=== PATIENT | male | born 1980 | race Caucasian/White ===

== ENCOUNTER 2024-05-31 10:49 | Inpatient (IN) | payer OTHER ==
[~2024-05-31] VITALS: Ht 188 cm; Wt 114.1 kg
[2024-05-31] MEDS ORDERED: HEPARIN SODIUM,PORCINE 5,000 UNITS/ML VIAL IVP PRN ×2 (13:15)
[2024-05-31] MEDS ORDERED: HEPARIN SODIUM,PORCINE 5,000 UNITS/ML VIAL IVP ONE (13:15)
[2024-05-31 13:46] LABS: BASOPHILS % (AUTO) 0.4 % (0.0-2.0); EOSINOPHILS % (AUTO) 0.9 % (1.0-6.0); HEMATOCRIT 47.3 % (41-53); HEMOGLOBIN 16.3 g/dL (13.5-17.5); LYMPHOCYTES # (AUTO) 2.7 K/uL (1.0-4.8); LYMPHOCYTES % (AUTO) 32.2 % (22.0-44.0); MEAN CORPUSCULAR HEMOGLOBIN 31.8 pg (26.0-34.0); MEAN CORPUSCULAR HGB CONC 34.5 G/dL (31.0-37.0); MEAN CORPUSCULAR VOLUME 92 fL (80-100); MONOCYTES # (AUTO) 0.7 K/uL (0.1-1.0); MONOCYTES % (AUTO) 7.9 % (2.0-9.0); NEUTROPHILS % (AUTO) 58.6 % (40.0-70.0); PLATELET COUNT (AUTO) 264 K/uL (150-450); RED BLOOD CELL COUNT(AUTO) 5.12 MIL/uL (4.50-5.90); WHITE BLOOD COUNT (AUTO) 8.5 K/uL (4.5-11.0)
[2024-05-31 13:50] LABS: RBC MORPHOLOGY COMMENT NORMAL RBC MORPH
[2024-05-31 13:51] LABS: ANION GAP 8 mmol/L (8-16); CALCIUM, TOTAL 9.4 mg/dL (8.8-10.5); CARBON DIOXIDE 31 mmol/L (22-29); CHLORIDE 98 mmol/L (98-107); CREATININE 1.26 mg/dL (0.60-1.30); GLOMERULAR FILTR. RATE CALC > 60 mL/min (>60); GLUCOSE,RANDOM 101 mg/dL (70-110); POTASSIUM 3.7 mmol/L (3.5-5.1); SODIUM SERUM 137 mmol/L (136-145); UREA NITROGEN, BLOOD 15 mg/dL (7-18)
[2024-05-31] MEDS: HEPARIN SODIUM,PORCINE 5,000 UNITS/ML VIAL IVP ONE (14:12)
[2024-05-31] MEDS: HEPARIN SODIUM 25000 UNITS/D5W 250 ML IV PRN (14:12)
[2024-05-31 18:40] VITALS: BP 139/80; PULSE 72; RESP 20; TEMP 98.3; O2SAT 95
[2024-05-31 19:43] VITALS: BP 145/82; PULSE 73; RESP 20; TEMP 98.4; O2SAT 95
[2024-05-31] MEDS ORDERED: ACETAMINOPHEN 500 MG TABLET PO PRN (20:00)
[2024-05-31] MEDS ORDERED: MORPHINE SULFATE 2 MG/ML SYRINGE IVP PRN ×2 (20:00→23:00)
[2024-05-31] MEDS ORDERED: NALOXONE HCL 1 MG/ML 2 ML SYRINGE IVP PRN (20:00)
[2024-05-31] MEDS: ALPRAZolam 0.5 MG TABLET PO PRN (20:04)
[2024-05-31] MEDS: PARoxetine HCL 10 MG TABLET PO SCH (20:46)
[2024-05-31 21:28] VITALS: BP 129/80; PULSE 75; RESP 18; TEMP 98.2; O2SAT 94
[2024-05-31] MEDS ORDERED: BISACODYL 10 MG RECTAL RECTAL SUPPOSITORY PR PRN (23:00)
[2024-05-31] MEDS ORDERED: ALBUTEROL SULFATE 2.5 MG/0.5 ML NEB SOLUTION NEB PRN (23:00)
[2024-05-31] MEDS ORDERED: ZOLPIDEM TARTRATE 5 MG TABLET PO PRN (23:00)
[2024-05-31] MEDS ORDERED: ACETAMINOPHEN 325 MG TABLET PO PRN (23:00)
[2024-05-31] MEDS ORDERED: MAGNESIUM HYDROXIDE SUSPENSION 30 ML UDCUP PO PRN (23:00)
[2024-05-31] MEDS ORDERED: IPRATROPIUM BROMIDE 0.5 MG/2.5 ML NEB SOLUTION NEB PRN (23:00)
[2024-05-31] MEDS ORDERED: ONDANSETRON HCL 4 MG/2 ML VIAL IVP PRN (23:00)
[2024-05-31] MEDS ORDERED: OxyCODONE HCL/ACETAMINOPHEN 5-325 MG TABLET PO PRN (23:00)
[2024-06-01] MEDS ORDERED: HEPARIN SODIUM,PORCINE 5,000 UNITS/ML VIAL IVP PRN ×2 (03:00)
[2024-06-01] MEDS ORDERED: HEPARIN SODIUM,PORCINE 5,000 UNITS/ML VIAL IVP ONE (03:00)
[2024-06-01] MEDS: HEPARIN SODIUM 25000 UNITS/D5W 250 ML IV PRN (03:23)
[2024-06-01 04:51] VITALS: BP 131/84; PULSE 74; RESP 18; TEMP 98.6; O2SAT 96
[2024-06-01 07:25] LABS: BASOPHILS % (AUTO) 0.2 % (0.0-2.0); EOSINOPHILS % (AUTO) 0.4 % (1.0-6.0); HEMATOCRIT 41.8 % (41-53); HEMOGLOBIN 14.4 g/dL (13.5-17.5); LYMPHOCYTES # (AUTO) 2.8 K/uL (1.0-4.8); LYMPHOCYTES % (AUTO) 32.5 % (22.0-44.0); MEAN CORPUSCULAR HEMOGLOBIN 31.9 pg (26.0-34.0); MEAN CORPUSCULAR HGB CONC 34.5 G/dL (31.0-37.0); MEAN CORPUSCULAR VOLUME 92 fL (80-100); MONOCYTES # (AUTO) 0.5 K/uL (0.1-1.0); MONOCYTES % (AUTO) 6.2 % (2.0-9.0); NEUTROPHILS # (AUTO) 5.3 K/uL (1.8-7.7); NEUTROPHILS % (AUTO) 60.7 % (40.0-70.0); PLATELET COUNT (AUTO) 244 K/uL (150-450); RED BLOOD CELL COUNT(AUTO) 4.53 MIL/uL (4.50-5.90); WHITE BLOOD COUNT (AUTO) 8.7 K/uL (4.5-11.0)
[2024-06-01 07:35] LABS: PROTHROMBIN TIME 11.7 SEC (9.4-11.6)
[2024-06-01 08:12] VITALS: BP 132/86; PULSE 70; RESP 18; TEMP 98.9; O2SAT 98
[2024-06-01] MEDS: PANTOPRAZOLE SODIUM 40 MG/VIAL IVP SCH (09:21)
[2024-06-01 15:03] VITALS: BP 142/86; PULSE 67; RESP 18; TEMP 98.5; O2SAT 96
[2024-06-01 20:00] VITALS: BP 130/84; PULSE 71; RESP 1; RESP 18; TEMP 97.6; O2SAT 100
[2024-06-01] MEDS: PARoxetine HCL 10 MG TABLET PO SCH (20:21)
[2024-06-02 06:20] VITALS: BP 120/79; PULSE 61; RESP 1; TEMP 97.8; O2SAT 96
[2024-06-02 07:09] LABS: BASOPHILS % (AUTO) 0.9 % (0.0-2.0); EOSINOPHILS % (AUTO) 1.2 % (1.0-6.0); HEMATOCRIT 43.4 % (41-53); LYMPHOCYTES # (AUTO) 2.7 K/uL (1.0-4.8); LYMPHOCYTES % (AUTO) 41.3 % (22.0-44.0); MEAN CORPUSCULAR HEMOGLOBIN 32.3 pg (26.0-34.0); MEAN CORPUSCULAR HGB CONC 34.7 G/dL (31.0-37.0); MEAN CORPUSCULAR VOLUME 93 fL (80-100); MONOCYTES # (AUTO) 0.6 K/uL (0.1-1.0); MONOCYTES % (AUTO) 8.8 % (2.0-9.0); NEUTROPHILS # (AUTO) 3.1 K/uL (1.8-7.7); NEUTROPHILS % (AUTO) 47.8 % (40.0-70.0); PLATELET COUNT (AUTO) 226 K/uL (150-450); RED BLOOD CELL COUNT(AUTO) 4.66 MIL/uL (4.50-5.90); RED CELL DISTRIBUTION WIDTH 14.2 % (11.5-14.5); WHITE BLOOD COUNT (AUTO) 6.5 K/uL (4.5-11.0)
[2024-06-02 08:16] VITALS: BP 121/84; PULSE 62; RESP 18; TEMP 97.8; O2SAT 100
[2024-06-02 16:20] VITALS: BP 140/83; PULSE 64; RESP 18; TEMP 98; O2SAT 96
[2024-06-02 20:55] VITALS: BP 131/78; PULSE 58; RESP 18; TEMP 97.7; O2SAT 93
[2024-06-03 05:45] VITALS: BP 134/85; PULSE 69; RESP 18; TEMP 97.5; O2SAT 96
[2024-06-03 08:38] VITALS: BP 132/96; PULSE 67; RESP 18; TEMP 97.4; O2SAT 95
[2024-06-03] MEDS ORDERED: APIX5TAB PO (14:36)
[2024-06-03 16:13] VITALS: BP 131/91; PULSE 61; RESP 16; TEMP 98.3; O2SAT 97
== END 2024-06-03 16:25 | disposition home or self-care (01) | DRG 301 ==
LOC: EMS 10:49 → EDH 16:45 → 6S 18:20 → 4E 21:05
PROVIDERS: ADMIT Hospitalist; ATTEND Hospitalist
DX: I82.461 Acute embolism and thrombosis of right calf muscular vein (principal); I82.431 Acute embolism and thrombosis of right popliteal vein; F41.9 Anxiety disorder, unspecified; F32.A Depression, unspecified
CPT/HCPCS: 80048; 82271; 85025; 85610; 85730; 93971; 96374; 99285; G0378; J1644; J2470